=== PATIENT | female | born 1980 | race Hispanic/Latino ===

== ENCOUNTER 2017-04-19 12:03 | Emergency (ER) | payer OTHER ==
[2017-04-19] MEDS ORDERED: SODIUM CHLORIDE 0.9% 1000ML 1,000 ML IV ONE (12:28)
[2017-04-19] MEDS ORDERED: ONDANSETRON HCL 4 MG/2 ML VIAL ONE ×2 (12:28→14:09)
[2017-04-19] MEDS ORDERED: FAMOTIDINE/PF 20 MG/2 ML VIAL IV ONE (12:28)
[2017-04-19 12:56] LABS: BASOPHILS % (AUTO) 0.4 % (0.0-5.0); EOSINOPHILS % (AUTO) 0.3 % (0.0-8.0); HEMATOCRIT 40.2 % (36-48); LYMPHOCYTES % (AUTO) 4.9 % (21.0-51.0); MEAN CORPUSCULAR HEMOGLOBIN 29.1 pg (27.0-33.0); MEAN CORPUSCULAR VOLUME 85.6 fL (79-99); MONOCYTES % (AUTO) 4.8 % (3.0-13.0); NEUTROPHILS % (AUTO) 89.6 % (40.0-77.0); PLATELET COUNT (AUTO) 332 K/uL (130-400); RED BLOOD CELL COUNT(AUTO) 4.69 MIL/uL (4.00-5.50); RED CELL DISTRIBUTION WIDTH 13.5 % (11.0-15.5); WHITE BLOOD COUNT (AUTO) 10.1 K/uL (4.8-10.8)
[2017-04-19 13:03] LABS: CREATININE 0.6 mg/dL (0.5-1.5); POTASSIUM 3.7 mmol/L (3.5-5.1)
[2017-04-19 13:08] LABS: ALBUMIN 3.8 g/dL (3.5-5.0); BILIRUBIN,DIRECT 0.1 mg/dL (0.0-0.3); BILIRUBIN,TOTAL 0.6 mg/dL (0.2-1.0); TOTAL PROTEIN, SERUM 7.7 g/dL (6.0-8.3)
[2017-04-19 13:45] LABS: APPEARANCE,URINE Clear (CLEAR); BILIRUBIN,URINE Negative (NEGATIVE); COLOR,URINE Yellow (YELLOW); GLUCOSE, URINE (UA) Negative (NEGATIVE); HCG,QUAL RESULT NEGATIVE (NEGATIVE); KETONES,URINE Negative (NEGATIVE); LEUKOCYTE ESTERASE ,URINE Small (NEGATIVE); NITRATE,URINE Negative (NEGATIVE); OCCULT BLOOD,URINE Negative (NEGATIVE); PROTEIN,URINE Negative (NEGATIVE); UROBILINOGEN,URINE 0.2 mg/dL (0.2-1.0)
[2017-04-19 13:52] LABS: BACTERIA,URINE Rare /HPF (None Seen); SQUAMOUS EPITHELIAL CELL,UR Rare /LPF (0-2); WBC,URINE 0-1 /HPF (0-1)
== END 2017-04-19 15:37 | disposition home or self-care (01) ==
LOC: EDH 12:03
DX: K52.9 Noninfective gastroenteritis and colitis, unspecified (principal); E86.9 Volume depletion, unspecified; Z87.891 Personal history of nicotine dependence
CPT/HCPCS: 36415; 80048; 80076; 81001; 81025; 83690; 85025; 96361; 96365; 96375; 96376; 99285; J2405 ×2; J3490; J7030

== ENCOUNTER 2019-02-17 10:29 | Emergency (ER) | payer OTHER ==
[2019-02-17 11:02] LABS: APPEARANCE,URINE Clear (CLEAR); BILIRUBIN,URINE Negative (NEGATIVE); COLOR,URINE Yellow (YELLOW); GLUCOSE, URINE (UA) Negative (NEGATIVE); KETONES,URINE Negative (NEGATIVE); LEUKOCYTE ESTERASE ,URINE Moderate (NEGATIVE); NITRATE,URINE Negative (NEGATIVE); OCCULT BLOOD,URINE Negative (NEGATIVE); PH,URINE 6.5 (5.0-8.0); PROTEIN,URINE Negative (NEGATIVE)
[2019-02-17] MEDS ORDERED: ONDANSETRON HCL 4 MG/2 ML VIAL ONE (11:03)
[2019-02-17] MEDS ORDERED: MORPHINE SULFATE 4 MG/1ML SYG ONE (11:03)
[2019-02-17] MEDS ORDERED: SODIUM CHLORIDE 0.9% 1000ML 1,000 ML IV ONE (11:04)
[2019-02-17 11:25] LABS: BASOPHILS % (AUTO) 0.7 % (0.0-5.0); EOSINOPHILS % (AUTO) 1.2 % (0.0-8.0); HEMATOCRIT 37.5 % (36-48); LYMPHOCYTES % (AUTO) 23.2 % (21.0-51.0); MEAN CORPUSCULAR HEMOGLOBIN 28.1 pg (27.0-33.0); MEAN CORPUSCULAR HGB CONC 33.1 g/dL (32.0-36.0); NEUTROPHILS % (AUTO) 64.5 % (40.0-77.0); PLATELET COUNT (AUTO) 350 K/uL (130-400); RED BLOOD CELL COUNT(AUTO) 4.41 MIL/uL (4.00-5.50); RED CELL DISTRIBUTION WIDTH 12.6 % (11.0-15.5); WHITE BLOOD COUNT (AUTO) 7.6 K/uL (4.8-10.8)
[2019-02-17 11:35] LABS: BACTERIA,URINE Rare /HPF (None Seen); RBC,URINE 0-1 /HPF (0-1); SQUAMOUS EPITHELIAL CELL,UR Moderate /HPF (0-2)
[2019-02-17 11:45] LABS: CREATININE 0.6 mg/dL (0.5-1.5); POTASSIUM 4.2 mmol/L (3.5-5.1)
[2019-02-17 12:00] LABS: BILIRUBIN,TOTAL 0.4 mg/dL (0.2-1.0); TOTAL PROTEIN, SERUM 7.6 g/dL (6.0-8.3)
[2019-02-17] MEDS ORDERED: IOHEXOL-350 75 ML VIAL IV ONE (12:46)
== END 2019-02-17 14:36 | disposition home or self-care (01) ==
LOC: EDH 10:29
DX: N39.0 Urinary tract infection, site not specified (principal); Z98.890 Other specified postprocedural states; Z87.891 Personal history of nicotine dependence
CPT/HCPCS: 36415; 74177; 80053; 81001; 81025; 83690; 84702; 85025; 96374; 96375; 99285; J2270; J2405; J7030; Q9967

== ENCOUNTER 2019-03-21 07:53 | Day surgery (SDC) | payer OTHER ==
[2019-03-20 15:29] LABS: BASOPHILS % (AUTO) 0.6 % (0.0-5.0); EOSINOPHILS % (AUTO) 2.1 % (0.0-8.0); HEMATOCRIT 36.9 % (36-48); MEAN CORPUSCULAR HEMOGLOBIN 27.7 pg (27.0-33.0); MEAN CORPUSCULAR HGB CONC 32.2 g/dL (32.0-36.0); MEAN CORPUSCULAR VOLUME 85.8 fL (79-99); MONOCYTES % (AUTO) 10.5 % (3.0-13.0); NEUTROPHILS % (AUTO) 57.4 % (40.0-77.0); PLATELET COUNT (AUTO) 335 K/uL (130-400); WHITE BLOOD COUNT (AUTO) 8.2 K/uL (4.8-10.8)
[2019-03-20 15:53] VITALS: BP 130/60
[~2019-03-21] VITALS: Ht 172.7 cm; Wt 107.2 kg
[2019-03-21] VITALS (18 sets, daily range): BP systolic 100–136; BP diastolic 47–77
[~2019-03-21 07:53] MED LIST: CALDOLOR 800MG+NS 250ML 250 ML IV SCH
[2019-03-21] MEDS ORDERED: BUPIVACAINE/PF 0.5% 10ML VIAL ONE (08:20)
[2019-03-21] MEDS ORDERED: LIDOCAINE PF 2% 5ML ABBOJECT ONE (08:25)
[2019-03-21] MEDS ORDERED: GLYCOPYRROLATE 1 MG/5 ML SYRINGE ONE (08:25)
[2019-03-21] MEDS ORDERED: SUCCINYLCHOLINE 200MG/10ML SYR ONE (08:25)
[2019-03-21] MEDS ORDERED: DEXAMETHASONE SOD PHOSPHATE 10MG/ML 1ML VIAL ONE (08:25)
[2019-03-21] MEDS ORDERED: ONDANSETRON HCL 4 MG/2 ML VIAL ONE (08:26)
[2019-03-21] MEDS ORDERED: MIDAZOLAM HCL 1 MG/ML 2ML VIAL ONE (08:26)
[2019-03-21] MEDS ORDERED: PROPOFOL 10 MG/ML 20ML VIAL IV ONE (08:26)
[2019-03-21] MEDS ORDERED: ROCURONIUM 10MG/1ML SYR 10 MG/ML ML ONE (08:26)
[2019-03-21] MEDS ORDERED: NEOSTIGMINE 5MG/5ML SYR IV ONE (08:26)
[2019-03-21] MEDS ORDERED: FENTANYL CITRATE PF 50 MCG/1 ML 2ML VIAL ONE ×2 (08:29→11:01)
[2019-03-21] MEDS: CEFAZOLIN SODIUM 1 GM VIAL IVP SCH ×2 (08:30→11:05)
[2019-03-21] MEDS: LACTATED RINGERS 1000ML 1,000 ML IV SCH ×2 (08:44→11:05)
[2019-03-21] MEDS ORDERED: CALDOLOR 800MG+NS 250ML 250 ML IV SCH (10:00)
== END 2019-03-21 13:45 | disposition home or self-care (01) ==
LOC: DAH 07:53
PROVIDERS: ATTEND Obstetrics & Gynecology
DX: Z30.2 Encounter for sterilization (principal); K66.0 Peritoneal adhesions (postprocedural) (postinfection); E66.9 Obesity, unspecified
CPT/HCPCS: 36415; 58670; 84703; 85025; 86850; 86900; 86901; A4215; A4221; A4222; A4223; A4351; A4663; A4930; A6260; C1769 ×2; G0168; J0330; J0690 ×2; J1100; J1741; J2001; J2250; J2405; J2704; J2710; J3010 ×2; J3490 ×2; J7030; J7120

== ENCOUNTER 2019-03-30 23:51 | Emergency (ER) | payer OTHER ==
[2019-03-31 00:12] LABS: APPEARANCE,URINE Clear (CLEAR); BILIRUBIN,URINE Negative (NEGATIVE); COLOR,URINE Dark Yellow (YELLOW); GLUCOSE, URINE (UA) Negative (NEGATIVE); KETONES,URINE Negative (NEGATIVE); LEUKOCYTE ESTERASE ,URINE Trace (NEGATIVE); NITRATE,URINE Positive (NEGATIVE); OCCULT BLOOD,URINE Small (NEGATIVE); PH,URINE 6.5 (5.0-8.0); PROTEIN,URINE Negative (NEGATIVE)
[2019-03-31 00:33] LABS: BACTERIA,URINE Rare /HPF (None Seen); RBC,URINE 0-1 /HPF (0-1); TRANSITIONAL EPI CELLS,URINE Few /HPF (None Seen); WBC,URINE 0-1 /HPF (0-1)
[2019-03-31 01:07] LABS: BASOPHILS % (AUTO) 0.6 % (0.0-5.0); EOSINOPHILS % (AUTO) 2.7 % (0.0-8.0); HEMATOCRIT 34.1 % (36-48); LYMPHOCYTES % (AUTO) 37.7 % (21.0-51.0); MEAN CORPUSCULAR HEMOGLOBIN 27.9 pg (27.0-33.0); MEAN CORPUSCULAR HGB CONC 32.8 g/dL (32.0-36.0); MEAN CORPUSCULAR VOLUME 84.8 fL (79-99); MONOCYTES % (AUTO) 12.6 % (3.0-13.0); PLATELET COUNT (AUTO) 322 K/uL (130-400); RED BLOOD CELL COUNT(AUTO) 4.02 MIL/uL (4.00-5.50); RED CELL DISTRIBUTION WIDTH 12.9 % (11.0-15.5); WHITE BLOOD COUNT (AUTO) 6.8 K/uL (4.8-10.8)
[2019-03-31 01:20] LABS: CREATININE 0.6 mg/dL (0.5-1.5); POTASSIUM 3.6 mmol/L (3.5-5.1)
[2019-03-31] MEDS ORDERED: LIDOCAINE HCL-MPF 1% 2ML VIAL ONE (02:24)
[2019-03-31] MEDS ORDERED: CEFTRIAXONE SODIUM 1 GM ONE (02:24)
[2019-03-31] MEDS ORDERED: KETOROLAC TROMETHAMINE 15MG/ML ONE (02:25)
[2019-03-31] MEDS ORDERED: PHENAZOPYRIDINE HCL 200 MG TABLET ONE ×2 (02:29→02:33)
== END 2019-03-31 03:01 | disposition home or self-care (01) ==
LOC: EDH 23:51
DX: N32.89 Other specified disorders of bladder (principal); N39.0 Urinary tract infection, site not specified; Z98.890 Other specified postprocedural states
CPT/HCPCS: 36415; 76770; 76856; 80048; 81001; 85025; 96372 ×2; 99285; J0696; J1885; J3490

== ENCOUNTER 2022-09-28 14:02 | Emergency (ER) | payer OTHER ==
[~2022-09-28] VITALS: Ht 170.2 cm; Wt 108.9 kg
[2022-09-28 14:49] LABS: APPEARANCE,URINE CLEAR (CLEAR); BILIRUBIN,URINE NEGATIVE (NEGATIVE); COLOR,URINE YELLOW (YELLOW); GLUCOSE, URINE (UA) NEGATIVE (NEGATIVE); KETONES,URINE NEGATIVE (NEGATIVE); LEUKOCYTE ESTERASE ,URINE NEGATIVE Leu/uL (NEGATIVE); NITRATE,URINE NEGATIVE (NEGATIVE); OCCULT BLOOD,URINE LARGE (NEGATIVE); PROTEIN,URINE 10 mg/dL (NEGATIVE); UROBILINOGEN,URINE 0.2 mg/dL (0.2-1.0)
[2022-09-28 14:57] LABS: BACTERIA,URINE RARE /HPF (None Seen); MUCUS,URINE RARE LPF (None Seen); RBC,URINE 0-1 /HPF (0-1); SQUAMOUS EPITHELIAL CELL,UR RARE /HPF (0-2); WBC,URINE 0-1 /HPF (0-1)
[2022-09-28] MEDS ORDERED: ONDANSETRON ODT 4MG TAB SL ONE (15:00)
[2022-09-28] MEDS ORDERED: HYDROCODONE/ACETAMINOPHEN 5/325 MG TAB PO ONE (15:00)
[2022-09-28] MEDS ORDERED: KETOROLAC 60 MG VIAL (30MG/ML) IM ONE (15:00)
[2022-09-28 15:35] LABS: BASOPHILS % (AUTO) 0.7 % (0.0-5.0); EOSINOPHILS % (AUTO) 1.3 % (0.0-8.0); HEMATOCRIT 34.1 % (36-48); LYMPHOCYTES % (AUTO) 21.6 % (21.0-51.0); MEAN CORPUSCULAR HEMOGLOBIN 28.3 pg (27.0-33.0); MEAN CORPUSCULAR HGB CONC 32.8 g/dL (32.0-36.0); MEAN CORPUSCULAR VOLUME 86.1 fL (79-99); MONOCYTES % (AUTO) 10.8 % (3.0-13.0); NEUTROPHILS % (AUTO) 65.3 % (40.0-77.0); PLATELET COUNT (AUTO) 307 K/uL (130-400); RED BLOOD CELL COUNT(AUTO) 3.96 MIL/uL (4.00-5.50); RED CELL DISTRIBUTION WIDTH 12.6 % (11.0-15.5); WHITE BLOOD COUNT (AUTO) 6.7 K/uL (4.8-10.8)
[2022-09-28 15:43] LABS: CREATININE 0.6 mg/dL (0.5-1.5); POTASSIUM 3.9 mmol/L (3.5-5.1)
[2022-09-28 15:47] LABS: ALBUMIN 3.3 g/dL (3.5-5.0); TOTAL PROTEIN, SERUM 6.7 g/dL (6.0-8.3)
[2022-09-28] MEDS ORDERED: NAPR-1023 PO (16:43)
[2022-09-28] MEDS ORDERED: CYCL5TAB PO (16:43)
[2022-09-28] MEDS ORDERED: LIDOP TP (16:43)
[2022-09-28 16:45] VITALS: BP 120/69; PULSE 77; RESP 16; O2SAT 100
== END 2022-09-28 16:56 | disposition home or self-care (01) ==
LOC: EDH 14:02
DX: M54.50 Low back pain, unspecified (principal)
CPT/HCPCS: 36415; 74176; 80053; 81001; 81025; 85025; 96372; J1885

== ENCOUNTER 2023-10-08 22:48 | Emergency (ER) | payer OTHER ==
[~2023-10-08] VITALS: Ht 170.2 cm; Wt 119.3 kg
[~2023-10-08 22:48] MED LIST changes: -CALDOLOR 800MG+NS 250ML 250 ML IV SCH; +CYCL5TAB PO; +LIDOP TP; +NAPR-1023 PO
[2023-10-08] MEDS: CYCLOBENZAPRINE HCL 10 MG TABLET PO ONE (23:19)
[2023-10-08] MEDS: ACETAMINOPHEN WITH CODEINE 1 TAB TAB PO ONE (23:20)
[2023-10-08] MEDS: DEXAMETHASONE SOD PHOSPHATE 4 MG/ML 1ML VIAL IM ONE (23:20)
[2023-10-09] MEDS ORDERED: IBUP-2077 PO (00:11)
[2023-10-09] MEDS ORDERED: METH4TAB3 PO (00:11)
[2023-10-09] MEDS ORDERED: CYCL10TA16 PO (00:11)
[2023-10-09 00:14] VITALS: BP 128/78; PULSE 62; RESP 20; O2SAT 100
== END 2023-10-09 00:22 | disposition home or self-care (01) ==
LOC: EDH 22:48
DX: S39.012A Strain of muscle, fascia and tendon of lower back, initial encounter (principal); Z79.899 Other long term (current) drug therapy; Z98.890 Other specified postprocedural states; X50.1XXA Overexertion from prolonged static or awkward postures, initial encounter; Y93.89 Activity, other specified; Y92.89 Other specified places as the place of occurrence of the external cause; Y99.8 Other external cause status
CPT/HCPCS: 99283; 72100; 96372; J1100

== ENCOUNTER 2023-12-09 18:19 | Emergency (ER) | payer OTHER ==
[~2023-12-09] VITALS: Ht 170.2 cm; Wt 113.4 kg
[~2023-12-09 18:19] MED LIST changes: +CYCL10TA16 PO; +IBUP-2077 PO; +METH4TAB3 PO
[2023-12-09 19:38] VITALS: TEMP 98.3
[2023-12-09 19:44] LABS: BASOPHILS # (AUTO) 0.04 K/uL (0.00-0.20); BASOPHILS % (AUTO) 0.6 % (0.0-5.0); EOSINOPHILS # (AUTO) 0.13 K/uL (0.00-0.70); HEMATOCRIT 31.6 % (36-48); IMMATURE GRANULOCYTE ABSOLUTE 0.05 K/uL (0-1); LYMPHOCYTES # (AUTO) 1.6 K/uL (1.0-4.8); LYMPHOCYTES % (AUTO) 24.7 % (21.0-51.0); MEAN CORPUSCULAR HEMOGLOBIN 24.1 pg (27.0-33.0); MEAN CORPUSCULAR HGB CONC 30.7 g/dL (32.0-36.0); MEAN CORPUSCULAR VOLUME 78.4 fL (79-99); MONOCYTES # (AUTO) 0.7 K/uL (0.1-1.0); MONOCYTES % (AUTO) 10.1 % (3.0-13.0); NEUTROPHILS # (AUTO) 4.1 K/uL (1.8-7.7); NEUTROPHILS % (AUTO) 61.8 % (40.0-77.0); PLATELET COUNT (AUTO) 438 K/uL (130-400); RED BLOOD CELL COUNT(AUTO) 4.03 MIL/uL (4.00-5.50); RED CELL DISTRIBUTION WIDTH 14.6 % (11.0-15.5); WHITE BLOOD COUNT (AUTO) 6.6 K/uL (4.8-10.8)
[2023-12-09 19:57] LABS: CREATININE 0.7 mg/dL (0.5-1.0); POTASSIUM 3.3 mmol/L (3.5-5.1)
[2023-12-09] MEDS: mecliZINE HCL 25 MG TABLET PO ONE (20:09)
[2023-12-09] MEDS: 0.9%NACL 1000ML 1,000 ML IV ONE (20:09)
[2023-12-09] MEDS ORDERED: MECL-302 PO (21:09)
[2023-12-09 21:27] VITALS: BP 120/61; PULSE 71; RESP 14; O2SAT 99
== END 2023-12-09 21:33 | disposition home or self-care (01) ==
LOC: EDH 18:19
DX: E86.0 Dehydration (principal); E87.1 Hypo-osmolality and hyponatremia; E87.6 Hypokalemia; E87.8 Other disorders of electrolyte and fluid balance, not elsewhere classified; R42 Dizziness and giddiness; Z79.899 Other long term (current) drug therapy; Z90.710 Acquired absence of both cervix and uterus; Z98.890 Other specified postprocedural states
CPT/HCPCS: 99284; 70450; 80048; 85025; 36415; 93005; J7030

== ENCOUNTER 2024-08-16 15:20 | Emergency (ER) | payer OTHER ==
[~2024-08-16] VITALS: Ht 170.2 cm; Wt 116.7 kg
[~2024-08-16 15:20] MED LIST changes: -CYCL5TAB PO; +CYCL5TAB3 PO; +MECL-302 PO; -NAPR-1023 PO; +NAPR-1194 PO
[2024-08-16 15:29] VITALS: BP 107/67; PULSE 81; RESP 16; TEMP 98.1; O2SAT 96
[2024-08-16] MEDS ORDERED: DICL20GE TP (15:36)
--- NOTE | 2024-08-16 15:36 | ERN ---
General Chief Complaint: Upper Extremity Pain/Injury Stated Complaint: RIGHT ARM PAIN Time Seen by MD: 15:27 Source: patient History of Present Illness Initial Comments PATIENT IS A 44-YEAR-OLD FEMALE COMING IN TO BE EVALUATED FOR RIGHT ARM DISCOMFORT. PATIENT STATES HE WOKE UP WITH THIS PAIN. NO FEVER OR CHILLS. Allergies: Coded Allergies: No Known Drug Allergies (Unverified Allergy, Unknown, 03/20/19) Home Meds Active Scripts Meclizine HCl (Meclizine HCl) 25 Mg Tablet, 25 MG PO TID for vertigo, #30 TAB 0 Refills Prov:DANIELLE JUSTICE MD 12/09/23 Cyclobenzaprine HCl (Flexeril) 10 Mg Tab, 10 MG PO TID for muscle sstiffness, #14 TAB 0 Refills Prov:NETO NIELSEN NP 10/09/23 Ibuprofen (Ibuprofen 800 mg Tab) 800 Mg Tab, 800 MG PO Q8H PRN for fever or pain, #30 TAB 0 Refills Prov:NETO NIELSEN NP 10/09/23 Methylprednisolone (Medrol) 4 Mg Tab.ds.pk, 4 MG PO AD, #1 UNIT Prov:NETO NIELSEN NP 10/09/23 Lidocaine (Lidoderm Patch 5%) 1 Patch Patch, 1 PATCH TP DAILY for 5 Days, #5 ADH.PATCH Prov:ANGELA FLORES 09/28/22 Cyclobenzaprine HCl (Cyclobenzaprine HCl) 5 Mg Tablet, 5 MG PO BID for 5 Days, #7 TAB Prov:ANGELA FLORES 09/28/22 Naproxen (Naproxen) 500 Mg Tablet, 500 MG PO BID for 5 Days, #10 TAB Prov:ANGELA FLORES 09/28/22 Past Medical History Past Medical History: No Pertinent History Past Surgical History: None Surgical History Other: KNEE SURGERY Female( History) History: Not Applicable ROS Dictation CONSTITUTIONAL: NO CHILLS, NO FEVER, NO WEAKNESS, NO DIAPHORESIS, NO MALAISE. HEAD/FACE: NO SIGNS OF TRAUMA. EENT: NO EYE PAIN, NO BLURRED VISION, NO TEARING, NO DOUBLE VISION, NO EAR PAIN, NO EAR DISCHARGE, NO NOSE PAIN, NO NASAL CONGESTION, NO THROAT PAIN, NO THROAT SWELLING, NO MOUTH PAIN. RESPIRATORY: NO COUGH, NO ORTHOPNEA, NO SOB, NO STRIDOR, NO WHEEZING. CARDIOVASCULAR: NO CHEST PAIN, NO EDEMA, NO PALPITATIONS, NO SYNCOPE. GASTROINTESTINAL/ABDOMINAL: NO ABDOMINAL PAIN, NO CONSTIPATION, NO DIARRHEA, NO NAUSEA, NO VOMITING. GENITOURINARY: NO ABNORMAL DISCHARGE, NO DYSURIA, NO FREQUENT URINATION, NO HEMATURIA. NO COMPLAINTS OF PAIN IN THE GENITALS. MUSCULOSKELETAL: NO BACK PAIN, NO GOUT, NO JOINT PAIN, NO JOINT SWELLING, MUSCLE PAIN, NO MUSCLE STIFFNESS, NO NECK PAIN. INTEGUMENTARY: NO CHANGE IN COLOR, NO CHANGE IN HAIR/NAILS, NO DRYNESS, NO LESION, NO LUMPS, NO RASH. NEUROLOGICAL/PSYCH: NO ANXIETY, NOT DEPRESSED, NO EMOTIONAL PROBLEM, NO HEADACHE, NO NUMBNESS, NO PRE-EXISTING DEFICIT, NO HISTORY OF SEIZURES, NO TREMORS, NO WEAKNESS. HEMATOLOGIC/LYMPHATIC: NOT ANEMIC, NO HISTORY OF BLOOD CLOTS, NO APPARENT BLEEDING, NO BRUISING, GLANDS NOT SWOLLEN. ALL SYSTEMS NEGATIVE, EXCEPT NOTED. Physical Exam Physical Exam Dictation VITAL SIGNS: REVIEWED. GENERAL APPEARANCE: ALERT, ORIENTED X3, NO ACUTE DISTRESS, OBESE. HEAD AND FACE: NON-TRAUMATIC. EYES: PERRL, PINK CONJUNCTIVAS, EYELID NO TRAUMA, ANTERIOR CHAMBER CLEAR. EARS: PINNAS INTACT AND NO SIGNS OF TRAUMA OR ERYTHEMA. EAR CANALS CLEAR AND NO DISCHARGE. TMS NO ERYTHEMA. NOSE: NO DISCHARGE, NO BLEEDING. OROPHARYNX: MOUTH NORMAL, TEETH NO CARIES, TONGUE PINK. PHARYNX CLEAR, NO ERYTHEMA. TONSILS NO EXUDATES, NO ABSCESSES NOTED. MUCOUS MEMBRANE MOIST. NECK: SUPPLE, NON-TENDER, NO THYROMEGALY, NO MASSES, NO JVD, NO BRUITS. BREAST: DEFERRED. CHEST: NO TENDERNESS, NO CREPITUS, NO PARADOXICAL MOVEMENT, NO RETRACTIONS. LUNGS: CLEAR, WELL-VENTILATED, SYMMETRIC, NO RALES, NO WHEEZING, NO RHONCHI, NO STRIDOR, GOOD BREATH SOUNDS BILATERALLY. HEART: REGULAR RATE, REGULAR RHYTHM, NO MURMUR, NO GALLOPS. VASCULAR: NO PERIPHERAL EDEMA. ABDOMEN: SOFT, POSITIVE BOWEL SOUNDS, NONDISTENDED, NO GUARDING, NONTENDER, NO REBOUND, NO MASSES NO HEPATOMEGALY, NO SPLENOMEGALY, NO REYES'S SIGN, NO HERNIAS. RECTAL: DEFERRED. GENITAL: DEFERRED. NEUROLOGICAL: NORMAL SPEECH, GROSS MOTOR FUNCTION INTACT, GROSS SENSORY FUNCTION INTACT. MUSCULOSKELETAL: NECK NONTENDER, FULL RANGE OF MOTION, BACK NONTENDER, FULL RANGE OF MOTION. EXTREMITIES: NONTENDER, FULL RANGE OF MOTION. RIGHT FOREARM TENDERNESS ON PALPATION, TENDERNESS ON FLEXION OF FOREARM SKIN: COLOR PINK, DRY, NO TURGOR, NO RASH, NO LACERATIONS, NO ABRASIONS, NO CONTUSIONS. LYMPHATICS: DEFERRED. Results Laboratory and Microbiology Labs Reviewed?: Yes MDM MDM: DIFFERENTIAL DIAGNOSIS: FOREARM STRAIN, MUSCLE STRAIN, TENDINITIS, RATIONALE: TESTS CONSIDERED AND ORDERED SECONDARY TO SHARED DECISION MAKING INCLUDE: PREVIOUS OUTSIDE RECORDS REVIEWED: OLD ER VISITS. RISK OF COMPLICATION AND/OR MORBIDITY OR MORTALITY OF PATIENT MANAGEMENT: NONE PATIENT IS A 44-YEAR-OLD FEMALE COMING IN TO BE EVALUATED FOR RIGHT ARM DISCOMFORT. ON PHYSICAL EXAM TENDERNESS TO THE RIGHT MEDIAL FOREARM REGION. PAIN IS EXACERBATED WITH FLEXION. SLING WAS PROVIDED I DID ADVISED HER APPROPR IATE FOLLOW UP WITH PCP AND CONTINUE WITH RICE TECHNIQUE ED Course Vital Signs Date Time Temp Pulse Resp B/P (MAP) Pulse Ox O2 Delivery O2 Flow Rate FiO2 08/16/24 15:29 98.1 81 16 107/67 96 Room Air* 0 21 08/16/24 15:21 98.1 81 16 107/67 96 Room Air 0 DX & DISP Disposition: Discharge Departure Impression: Primary Impression: Muscle strain Additional Impression: Tendinitis Condition: Stable Scripts Diclofenac Sodium (Voltaren Arthritis Pain) 1 % Gel..gram. 5 GM TP BID for 7 Days, #1 TUBE Prov: ERIN MELARA MD 08/16/24 Additional Instructions: FOLLOW-UP WITH PRIMARY CARE PROVIDER IN 1 TO 2 DAYS. TAKE MEDICATIONS DIRECTED HERE IN THE EMERGENCY ROOM. OKAY TO CONTINUE HOME MEDICATIONS UNLESS OTHERWISE DISCUSSED DURING YOUR VISIT IN THE EMERGENCY ROOM TODAY. RETURN TO YOUR NEAREST EMERGENCY ROOM IF SYMPTOMS WORSEN OR IF THERE IS NO IMPROVEMENT. CALL 911 IF YOU NEED IMMEDIATE ASSISTANCE. TAKE TYLENOL [id number] NEEDED AND IF NO CONTRAINDICATIONS ARE PRESENT. INCREASE ORAL HYDRATION. A WOUND CULTURE OR URINE CULTURE WAS ORDERED HERE IN THE EMERGENCY ROOM DEPARTMENT PLEASE FOLLOW-UP WITH PRIMARY CARE PROVIDER AND ADVISE THEM TO GET REPORTS FROM OUR FACILITY. IF YOU HAD ANY SHAYY WRAP/SPLINTS THAT WERE APPLIED HERE, PLEASE DO NOT REMOVE THEM UNTIL YOU SEE YOUR PRIMARY CARE OR SPECIALTY. REFERRALS: Referrals: STEFANI EMERSON (PCP) Time of Disposition: 15:35 ERIN MELARA MD Aug 16, 2024 15:36
== END 2024-08-16 15:50 | disposition home or self-care (01) ==
LOC: EDH 15:20
DX: S46.911A Strain of unspecified muscle, fascia and tendon at shoulder and upper arm level, right arm, initial encounter (principal); M77.9 Enthesopathy, unspecified; X58.XXXA Exposure to other specified factors, initial encounter; Y93.89 Activity, other specified; Y92.89 Other specified places as the place of occurrence of the external cause; Y99.8 Other external cause status
CPT/HCPCS: 29105; 99283